=== PATIENT | male | born 1995 | race Caucasian/White ===

== ENCOUNTER 2023-10-23 17:24 | Emergency (ER) | payer OTHER ==
[~2023-10-23] VITALS: Ht 167.6 cm; Wt 83.9 kg
[2023-10-23 17:32] VITALS: BP 119/81; PULSE 101; RESP 18; TEMP 98.4; O2SAT 97
[2023-10-23] MEDS ORDERED: methylPREDNISolone SS 125 MG/2 ML VIAL ONE (18:10)
[2023-10-23] MEDS ORDERED: WATER STERILE 10 ML MC ONE (18:10)
[2023-10-23] MEDS: methylPREDNISolone SS 125 MG in WATER STERILE 2 ML IM ONE (18:20)
[2023-10-23 18:29] VITALS: PULSE 94; RESP 22; RESP 26; O2SAT 99
[2023-10-23] MEDS: IPRATROPIUM 0.02% 0.5 MG/2.5 ML NEBU INH ONE (18:29)
[2023-10-23] MEDS: ALBUTEROL 0.083% 2.5 MG/3 ML NEBU INH ONE (18:30)
[2023-10-23] MEDS: MAG SULF 2000 MG/WATER PREMIX 50 ML IV ONE (19:20)
[2023-10-23] MEDS ORDERED: PRED20TA5 PO (19:55)
[2023-10-23] MEDS ORDERED: ALBU0.0912 INH (19:55)
[2023-10-23 22:35] VITALS: BP 123/78; PULSE 89; RESP 16; TEMP 98.4; O2SAT 97
== END 2023-10-23 22:35 | disposition home or self-care (01) ==
LOC: MED 17:24
DX: J45.901 Unspecified asthma with (acute) exacerbation (principal); Z79.899 Other long term (current) drug therapy
CPT/HCPCS: 71045; 94640; 96365; 96366; 96372; 99285; J2930; J3475; J7613